=== PATIENT | female | born 1990 ===

== ENCOUNTER 2022-06-19 15:00 | Outpatient (RCR) | payer BC, SELFPAY | END 2022-07-25 14:28 | disposition home or self-care (01) | PROVIDERS: PCP Emergency Medicine; Visit Provider Emergency Medicine | DX: R42 Dizziness and giddiness (principal); Z51.89 Encounter for other specified aftercare | CPT/HCPCS: 97140; 97161 ==

== ENCOUNTER 2022-06-28 10:00 | Outpatient (CLI) | payer BC, SELFPAY ==
[2022-06-28 15:44] LABS: TSH With Reflex to FT4* 0.834 uIU/mL (0.270-4.200)
[2022-06-28 16:14] LABS: Vitamin B12* 419 pg/mL (243-894)
== END 2022-06-28 10:01 | disposition home or self-care (01) ==
PROVIDERS: PCP Emergency Medicine; Visit Provider Emergency Medicine
DX: R41.3 Other amnesia (principal)
CPT/HCPCS: 82607; 84443

== ENCOUNTER 2022-07-05 10:53 | Outpatient (CLI) | payer BC, SELFPAY ==
--- NOTE | 2022-07-05 10:15 | CRLHL7_ITS ---
For Patients: As a result of the Century Cures Act, medical imaging exams and procedure reports are released immediately into your electronic medical record. You may view this report before your referring provider. If you have questions, please contact your health care provider. INDICATION: Memory loss. TECHNIQUE: Multiplanar multisequence noncontrast MR images acquired through the brain. COMPARISON: None. FINDINGS: The ventricles and sulci are within normal limits for patient age. No mass effect or midline shift. No parenchymal signal abnormalities. No intracranial hemorrhage or pathologic extra-axial fluid collection. No diffusion restriction to suggest acute infarction. The major arterial flow voids of the skullbase are preserved. The globes are symmetric. Minimal paranasal sinus mucosal thickening. The mastoid air cells are clear. IMPRESSION: Unremarkable noncontrast MRI of the brain. Dictated by Humble Servin MD @ 07/05/2022 2:45:19 PM (Electronically Signed)
== END 2022-07-05 10:54 | disposition home or self-care (01) ==
LOC: MRI 10:54
PROVIDERS: PCP Emergency Medicine; Visit Provider Emergency Medicine
DX: R41.3 Other amnesia (principal)
CPT/HCPCS: 70551

== ENCOUNTER 2023-06-27 15:31 | Outpatient (CLI) | payer BC, SELFPAY ==
--- OUTSIDE RECORDS SUMMARY | 2023-06-27 15:39 | XMS_ITS | Encounter Summary ---
Author Name Unknown Organization [facility] Address [address] [place] [id number] Care Team Providers Care Dairy Associate Name Role Phone No Ref-Primary, Physician Primary Care Provider Encounter Details Date Type Department Care Team (Latest Contact Info) Description 01/10/2023 Travel Social History Tobacco Use Types Packs/Day Years Used Date Smoking Tobacco: Never Assessed Sex and Gender Information Value Date Recorded Sex Assigned at Not on file Gender Identity Not on file Sexual Orientation Not on file COVID-19 Exposure Response Date Recorded In the last 10 days, have yo u been in contact with someone who was confirmed or suspected to have Coronavirus/COVID-19? No / Unsure 01/10/2023 2:15 AM CDT documented as of this encounter Plan of Treatment Not on file documented as of this encounter Visit Diagnoses Not on filedocumented in this encounter Care Teams Dairy Associate Relationship Specialty Start Date End Date No Ref-Primary, Physician PCP - General 11/08/20 documented as of this encounter
--- OUTSIDE RECORDS SUMMARY | 2023-06-27 15:39 | XMS_ITS | Clinical Summary ---
Author Name Unknown Organization [facility] Address [address] [place] [id number] Care Team Providers Care Carpenters Name Role Phone No Ref-Primary, Physician Primary Care Provider Allergies Active Allergy Reactions Criticality Noted Date Comments Diphenhydramine 11/08/2020 [place] Extract 11/08/2020 Medications Medication Sig Dispensed Refills Start Date End Date Status divalproex sodium extended-release (DEPAKOTE ER) 500 MG 24 hr tablet Take 500 mg by mouth daily 0 Active dexmethylphenidate (FOCALIN XR) 15 MG 24 hr capsule Take 15 mg by mouth daily 0 Active QUEtiapine (SEROQUEL) 50 MG tablet Take 50 mg by mouth 2 times daily 0 Active lamoTRIgine (LAMICTAL) 200 MG tablet Take 200 mg by mouth daily 0 Active citalopram (CELEXA) 40 MG tablet Take 40 mg by mouth daily 0 Active Active Problems Problem Noted Date Diagnosed Date Episode of recurrent major d epressive disorder, unspecified depression episode severity (H24) 01/10/2023 Unspecified mood (affective) disorder (H24) 08/2022 Anxiety 01/10/2023 Attention-deficit hyperactivity disorder, unspec ified type 03/06/2010 Overview: IMO Update 03/20 Social History Tobacco Use Types Packs/Day Years Used Date Smoking Tobacco: Never Assessed Adolescent Education Answer Date Record ed Getting School Help Needed Not on file 03/25 Sex and Gender Information Value Date Recorded Sex Assigned at Not on file Gender Identity Not on file Sexual Orientation Not on file Last Filed Vital Signs Vital Sign Reading Time Taken Comments Blood Pressure 102/59 01/10/2023 3:50 AM CDT Pulse 81 01/10/2023 3:50 AM CDT Temperature 36.8 ??C (98.2 ??F) 01/10/2023 12:06 AM C DT Respiratory Rate 14 01/10/2023 3:50 AM CDT Oxygen Saturation 98% 01/10/2023 3:50 AM CDT Inhaled Oxygen Concentration - - Weight 75.9 kg (167 lb 5.3 oz) 06/11/2022 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 Height 152.4 cm (5') 06/11/2022 8:17 PM MACHINE DESIGNER Body Mass Index 32.68 06/11/2022 8:17 PM MACHINE DESIGNER Plan of Treatment Health Maintenance Due Date Last Done Comments ADVANCE CARE PLANNING 1990 ANNUAL REVIEW OF HM ORDERS 1990 DEPRESSION ACTION PLAN 1990 HEPATITIS B IMMUNIZATION (1 of 3 - 3-dose series) 1990 PHQ-9 1990 YEARLY PREVENTIVE VISIT 1990 HIV SCREENING 2005 HEPATITIS C SCREENING 2008 COVID-19 Vaccine ( season) 2023 10/19/2020, 09/28/2020 INFLUENZA VACCINE (#1) 2023 , 03/27/2019, 03/29/2011, Additional history exists PAP 05/19/2023 05/19/2020, 05/19/2020 DTAP/TDAP/TD IMMUNIZATION (2 - Td or Tdap) 02/26/2028 02/25/2018 HPV IMMUNIZATION Aged Out No longer e ligible based on patient's age to complete this topic IPV IMMUNIZATION Aged Out No longer e ligible based on patient's age to complete this topic MENINGITIS IMMUNIZATION Aged Out No l onger eligible based on patient's age to complete this topic Pneumococcal Vaccine: Pediatrics (0 to 5 Years) and At-Risk Patients (6 to 64 Years) Aged Out No longer eligible based on patient's age to complete this topic RSV MONOCLONAL ANTIBODY Aged Out No l onger eligible based on patient's age to complete this topic Care Teams Carpenters Relationship Specialty Start Date End Date No Ref-Primary, Physician PCP - General 11/08/20
--- OUTSIDE RECORDS SUMMARY | 2023-06-27 15:39 | XMS_ITS | Encounter Summary ---
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 Name Role Phone No Ref-Primary, Physician Primary Care Provider Reason for Visit * Reason Comments Suicidal Encounter Details Date Type Department Care Team (Late st Contact Info) Description 01/10/2023 12:06 AM CDT - 01/10/2023 4:09 AM CDT Emergency [facility] Emergency Dept [address] [place] [address] Osei Rose MD [facility] [address] [place] [address] Acute reaction to situational stress Discharge Disposition: Home or Self Care Social History Tobacco Use Types Packs/Day Years [...] AM CDT documented as of this encounter Last Filed Vital Signs Vital Sign Reading Time Taken Comments Blood Pressure 102/59 01/10/2023 3:50 AM CDT Pulse 81 01/10/2023 3:50 AM CDT Temperature 36.8 ??C (98.2 ??F) 01/10/2023 12:06 AM C DT Respiratory Rate 14 01/10/2023 3:50 AM CDT Oxygen Saturation 98% 01/10/2023 3:50 AM CDT Inhaled Oxygen Concentration - - Weight - - Height - - Body Mass Index - - documented in this encounter Discharge Instructions * Discharge Instructions* [facility] 01/10/2023 3:55 AM CDT Aftercare Plan If I am feeling unsafe or I am in a crisis, I will: Contact my established care providers Call the [place] Suicide Prevention Lifeline: 988 Go to the nearest emergency room Call 911 Warning signs that I or other people might notice when a crisis is developing for me: -Suicidal ideations, vague comments or threats to harm self -Engaging in self injurious behaviors of punching santana or hitting head -Crying and feeling overwhelmed -Irritability -Feeling overstimulated Things I am able to do on my own to cope or help me feel better: -Showering -cleaning house -playing with dogs -Putting on a dodd/hat Things that I am able to do with others to cope or help me better: -go for a drive -spend time with pets -spend time with family Things I can use or do for distraction: -I will attend scheduled appointments and psychiatric appointments and follow all recommendations -I will commit to 30 minutes of self care daily - this can be as simple as taking a shower, going for a walk, cooking a meal, reading, writing, watching something funny, cleaning your home, or evening looking up affirmations. -I will practice square breathing when I begin to feel anxious - in breath through the nose for thecount of 4 and the first line on the square. Out breath through the mouth for the count of 4 for the second line of the square. Repeat to complete the square. Repeat the square as many times as needed. - I will use distraction skills of: going for walks, watching TV, spending time outside, calling a friend or family member, creating a playlist, write a hand written letter to a loved one, or listening to a pod cast. -Download a meditation onofre and spend 15-20 minutes per day mediating/relaxing. Some apps to download include: Calm, Headspace and Insight Timer. All 3 of these apps have free version Grounding Techniques: ??Try to notice where you are, your surroundings including the people, the sounds like the TV or radio. ??Concentrate on your breathing. Take a deep cleansing breath from your diaphragm. Count the breaths as you exhale. Make sure you breath slowly. ??Hold something that you find comforting, for some it may be a stuffed animal or a blanket. Noticehow it feels in your hands. Is it hard or soft? ??During a non-crisis time make a list of positive affirmations. Print them out and keep them handyfor times of intense anxiety. At those times, read them aloud. Try the Reasult game: ??Name 5 things you can see in the room with you ??Name 4 things you can feel (???clothing on your back?? or ???fan on your skin?? ) ??Name 3 things you can hear right now (???people talking?? , ???birds?? or ???tv?? ) ??Name 2 things you can smell right now (or, 2 things you like the smell of) ??Name 1 good thing about yourself Create A Safe Place ??Image a safe place -- it can be a real or imaginary place: ??What do you see -- especially colors? ??What sounds do you hear? ??What sensations do you feel? ??What smells do you smell? ??What people or animals would you want in your safe place? ??Imagine a protective bubble, wall or boundary around your safe place. ??Imagine a door or gate with a guard at your safe place. ??Image a lock and hopson to your safe place and only you can unlock it. ??You can draw or make a collage that represents your safe place. ??Choose a souvenir of your safe place -- a color, an object, a song. ??Keep your image of your safe place so you can come back to it when you need to. Reduce Extreme Emotion QUICKLY: Changing Your Body Chemistry Change your body Temperature to change your autonomic nervous system ??Use Ice Water to calm yourself down FAST ??Splash ice water on your face, or hold an ice pack on your face Intensely exercise to calm down a body revved up by emotion ??Examples: running, walking fast, jumping, playing basketball, weight lifting, swimming, calisthenics, etc. ??Engage in exercises that DO NOT include violent behaviors. Exercises that utilize violent behaviors tend to function as ???behavioral rehearsal,?? and rather than calming the person down, may actually ???rev?? the person up more, increasing the likelihood of violence, and lessening the likelihood that they will ???burn off?? energy Progressively relax your muscles ??Starting with your hands, moving to your forearms, upper arms, shoulders, neck, forehead, eyes, cheeks and lips, tongue and teeth, chest, upper back, stomach, buttocks, thighs, calves, ankles, feet ??Tense (10 seconds, ?? of the way), then relax each muscle (all the way) ??Notice the tension ??Notice the difference when relaxed (by tensing first, and then relaxing, you are able to get a more thorough relaxation than by simply relaxing) Paced breathing to relax ??The standard technique is to begin with counting the number of steps one takes for a typical inhale, then counting the steps one takes for a typical exhale, and then lengthening the amount of stepsfor the exhalation by one or two steps. OR ??Repeat this pattern for 1-2 minutes ??Inhale for four (4) seconds ??Exhale for six (6) to eight (8) seconds ??Research demonstrated that one can change one's overall level of anxiety by doing this exercise for even a few minutes per day Practice Urge Surfing This is a mindfulness technique that can be used to help reduce impulsive behaviors. Take several big deep breaths and ride the wave before you act upon negative thoughts or strong reactions. 1. Identify the Physical Sensation in the Body. Stop for a few minutes and be mindful of your physical responses to your urge. You can close your eyes ... 2. Focus on the Sensations. 3. Notice Breathing. 4. Refocus on Your Body. 5 Stay Curious and Present. Sensations Squeeze a rubber ball very hard. Listen to very loud music. Hold ice in your hand or mouth. Pay with sensory items. Go out in the rain or snow. Take a hot or cold shower. Place an ice pack or a warm cloth on your forehead. Remember that you can use your 5 senses as helpful self-soothing techniques. DBT Skills: The ABC PLEASE skill is about taking good care of ourselves so that we can take care of others. Also, an important component of DBT is to reduce our vulnerability. When we take good care of ourselves, we are less likely to be vulnerable to disease and emotional crisis. ABC A- Accumulate positive emotions by doing things that are pleasant. B- Build mastery by doing things we enjoy. Whether it is reading, cooking, cleaning, fixing a car, working a cross word puzzle, or playing a musical instrument. Practice these things to contractor general building and in time we feel competent. C- [place] Ahead by rehearsing a plan ahead of time so that we can be prepared to cope skillfully. (Think of what makes situations difficult, and what helps in those situations) PLEASE Treat Physical Illness and take medications as prescribed. Balance eating in order to avoid mood swings. Avoid mood-Altering substances and have mood control. Maintain good sleep so you can enjoy your life. Get exercise to maintain high spirits. Changes I can make to support my mental health and wellness: -Come back to the Emergency Department with any new or worsening symptoms -Use community resources, including hotline numbers, [facility] crisis and support meetings -Maintain a daily schedule/routine -Practice deep breathing skills -Disclose my urges to people I trust, such as: Jannette, Psychiatrist, Friends, Spouse -Abstain from all mood altering chemicals not currently prescribed to me -Reduce caffeine intake (this can exacerbate anxiety and negatively impact sleep) -Take medications as prescribed. Remove access to large amounts medications, have a pill danielle forany prescribed medications.If appropriate, take medications with the help of loved ones to support daily compliance. -Talk with family/ loved ones about your prodromal symptoms -Reflect on symptoms before and after episodes with symptoms to gain insight into triggers and the need for additional care. -Safety plan in the home, increase observation and check in often with family. Keep door open and be open to touching base with family as often as possible. Consider 24/7 support over the next several days to ensure safety and support. -Remove any unsafe objects in the home like firearms or sharp objects. Discuss with family on goingremoval as needed to ensure safety. -Follow up with out-patient recommended levels of care that were discussed today -Remember, start where you are, use what you have and do what you can in regard to coping skills and services. People in my life that I can ask for help: -Jannette -Psychiatrist -Mother -Brother -Friends Your county has a mental health crisis team you can call 31/12: [facility] Crisis [phone] Other things that are important when I'm in crisis: [place] crisis line @ CRISIS (658026) or by texting ???[place]?? to 269995. Crisis Intervention: 801.624.6198 or 665-485-4425 (TTY: 882.759.1710). Call anytime for help. National Grandy on Mental Illness (www.[place].cassandra.org): 954.189.2070 or 889-406-5594. [place] Crisis Hotline; 633 Additional resources and information: -Please consider individual therapy -Please look into obtaining a case aide -Please attend scheduled evaluation on February 03 -Please follow up with psychiatrist as soon as possible [facility] SCHEDULING: Today you were seen by a licensed mental health professional through [facility] ([facility]) for a crisis assessment in the Emergency Department at [facility]. It is recommended that you follow up with your estabished providers (psychiatrist, mental health therapist, and/or primary care doctor - as relevant) as soon as possible. Coordinators from [facility] will be calling you in the next 24-48 hours to ensure that you have the resources you need. You can also contact [facility] coordinators directly at [phone]. You have been scheduled the following appointments: Date: , 01/17/2023 Time: 10:00 am - 11:00 am Provider: Vimal [facility] Location: [facility], [address] [place] [address] [place] [address] Type: Day Treatment *Please call to confirm appointment time/ date and location* [facility] maintains an extensive network of licensed behavioral health providers to connect patients withthe services they need. We do not charge providers a fee to participate in our referral network. [place] patients with providers based on a patient???s specific needs, insurance coverage, and location. Our first effort will be to refer you to a provider within your care system, and will utilize pro viders outside your care system as needed. Mental Health Out-Patient Clinics/Services Near You: [facility] [phone] *Offers Individual Therapy, Medication Management, In-Home Therapy and Mental Health Case Workers; Can self refer online or by phone. [facility] *Offers Individual Therapy, Chemical Dependency Evaluations, Group Services, Psychological Testing,In-Home Therapy, Nutrition Counseling, Mother-Baby Programming, Medication Management and Mental Health Case Workers; Can self refer online or by phone. [facility] [phone] *Offers medication management, therapy, DBT Group, In-Home and geriatric care . Can self refer online or by phone. [facility] [phone] *Offers Individual Therapy, Group Services, Psychological Testing, In-Home Therapy, Medication Management, and Intensive Treatment in Foster Care (ITFC) Services; Can self refer online or by phone. You can also go to Serviceful and utilize the filters for insurance, location, gender preference and preferred specialities to read and find providers near you. [facility] Resource (Information pulled from [facility] Website) Call the Crisis Response Unit at 410-213-2005. The Crisis Response Unit is available to all people in the community. Phones are answered by caringstaff who know a lot about mental health, housing, shelters, food, employment and transportation. The Crisis Response Unit is considered a voluntary service. This means you choose if you want help from us. The Crisis Response Unit can also help with things like: Mental health crisis assessments Access to urgent psychiatry and therapy Family education and support Crisis phone support Referrals to community resources Crisis Stabilization Services Crisis Stabilization Services is a short-term service for people who need extra help getting through the difficult time after a crisis. Crisis Stabilization Services is a voluntary service. Call the Crisis Response Unit for more information. Non-urgent business hours Call Adult Services Intake at [phone] from 8 a.m-4 p.m. Walk in hours: 8 a.m.-4 p.m. Crisis Residences in [place] [facility], [facility] [place], [facility], [facility], Judy Desai, [facility], Crisis Residences in [facility] in [facility], [place], [place], [facility], Information/Referral Process: Crisis residences are self-referred programs (meaning you can call them on your own and request to go there). The program integrates mental health, medical, and substance use care in a residential, 24-hour, supervised setting for up to 10 days. Individuals can leave as they please. These services help individuals who are experiencing a mental health crisis or emergency. Crisis Lines Crisis Text Line Text 437617 You will be connected with a trained live crisis counselor to provide support. Por espanol, texto AYLEEN a 487063 o texto a 442-AYUDAME en WhatsApp The [employer] Project (LGBTQ Youth Crisis Line) text START to 746-983 Community Resources Fast Tracker Linking people to mental health and substance use disorder resources fasttrackPressgramn.org [place] Mental [facility] Warm Line Peer to peer support Saturday thru Saturday, 12 pm to 10 pm 902.312.2352 or Text Support to [address] National Grandy on Mental Illness (CASSANDRA) 608.943.9964 or 1.888.CASSANDRA.HELPS Mental Health Apps My3 https://my3app.org/ VirtualHopeBox https://Code71.org/apps/rgyfkca-aqrx-syo/ Additional Information Today you were seen by a licensed mental health professional through Triage and Transition services, [facility]) for a crisis assessment in the Emergency Department at [facility]. It is recommended that you follow up with your established providers (psychiatrist, mental health therapist, and/or primary care doctor - as relevant) as soon as possible. Coordinators from [facility] will be calling you in the next 24-48 hours to ensure that you have the resources you need. You can also contact [facility] coordinators directly at [phone]. You may have been scheduled for or offered an appointment with a mental health provider. [facility] maintains an extensive network of licensed [facility] health providers to connect patients with the services they need. We do not charge providers a fee to participate in our referral network. We match patients with providers based on a patient's specific needs, insurance coverage, and location. Our first effort will be to refer you to a provider within your care system, and will utilize providers outside your care system as needed. * Attachments The following attachments cannot be sent through Care Everywhere. * Suicidal Thoughts (French) * Depression: Self Care (French) * Mood Disorders: General Info (French) documented in this encounter Medications at Time of Discharge Medication Sig Dispensed Refills Start Date End Date citalopram (CELEXA) 40 MG tablet Take 40 mg by mouth daily 0 dexmethylphenidate (FOCALIN XR) 15 MG 24 hr capsule Take 15 mg by mouth daily 0 divalproex sodium extended-release (DEPAKOTE ER) 500 MG 24 hr tablet Take 500 mg by mouth daily 0 lamoTRIgine (LAMICTAL) 200 MG tablet Take 200 mg by mouth daily 0 QUEtiapine (SEROQUEL) 50 MG tablet Take 50 mg by mouth 2 times daily 0 documented as of this encounter Consult Notes * Mara Tobin LPCC - 01/10/2023 2:30 AM CDTAssociated Order(s): DIAGNOSTIC EVALUATION CENTER (DEC) ASSESSMENT ORDER Diagnostic Evaluation Consultation Crisis Assessment Patient Name: Carla Bullock Age: [age] year old Legal Sex: female Gender Identity: female Pronouns: Race: White Ethnicity: Not or Language: French Patient was assessed: Virtual: Knowmia Telemedicine Start Time: 229 Telemedicine Stop Time: 328 Patient location: [facility] EMERGENCY DEPT Referral Data and Chief Complaint Carla Bullock presents to the ED via EMS (Pt reports police called EMS and pt was brought in for this reason, though shares she is unsure who called 911.). Patient is presenting to the ED for the following concerns: Verbal agitation, Anxiety, Depression, Suicidal ideation, Worsening psychosocial stress. Factors that make the mental health crisis life threatening or complex are: Pt noted she is in the hospital today after having a conflict with her family, specifically her spouse about money. Pt expressed she is unsure how 911 came into play, though believes a family member likely called after she became increasingly dysregulated and upset. Pt shared when she is dysregulated she can be verbally abrasive, uncooperative, crying, anxious and make ideation comments.. Informed Consent and Assessment Methods Explained the crisis assessment process, including applicable information disclosures and limits toconfidentiality, assessed understanding of the process, and obtained consent to proceed with the assessment. Assessment methods included conducting a formal interview with patient, review of medical records, collaboration with medical staff, and obtaining relevant collateral information from familyand community providers when available. : done (Pt denied wanting to sign MICHELE's for established providers. MICHELE sent to ED for referral placed, ED to fax back if signed.) Patient response to interventions: acceptance expressed, verbalizes understanding Coping skills were attempted to reduce the crisis: Pt reported coping skills of showering, driving around town and speaking with friends and family. Pt expressed she attempted to use such skills today. Pt showed many benefits of verbal processing, given time to express frustrations, provided validation and reassurance with positive impact. History of the Crisis Pt reported before this recent visit to the ED, her mental health concerns have been present for several years, though more impactful in the past week, attributing this to not having her anti-depressant medication for a week and having increased conflict in the home with spouse, work stressors and financial debt. Pt noted ???my brain can not handle it?? with the increased stressors and thus ???Iwas having a melt down?? today. Pt expressed she had conflict with her spouse about money this past night and discussion of separation was noted. Pt noted she then left the home to ???cool off?? and drive around town, when she returned, one of her spouses adult daughters was in the home and told pt to ???get your shit and leave?? , relaying ???so that pissed me off?? . Pt was unable to regulateemotions after this, felt unsupported and overwhelmed and made an ideation comment such as ???I just want to , I don???t care or whatever?? . Though pt shared she said this out of frustration stating ???doesn???t everyone feel that way sometimes??? . Pt then noted she locked herself in the bathroom in attempt to take a shower and regulate herself, and her other spouse's daughter came in to speak with her. Pt shared that when they came out of the bathroom, nursing agency manager were present and pt recommendedpt be seen in ED. Pt expresses this ???really fucking pissed me off?? as she was upset and overwhelmed and did not believe It was necessary to be evaluated in the ED. Pt often expressed that the police report had misinformation provided by the spouse and oldest daughter, noting that pt and youngest daughter precieved the situation differently, which worsened her frustrations. Pt did express that historically she can become dsyregulated to the point of ideation comments and SIB of hitting head,expressing she has difficult engaging in coping skills when feeling overwhelmed and believes this is related to an Autism Diagnosis (not confirmed). [facility] was able to speak with patients step-daughterJannette at [phone] who confirmed pt's story. Collateral noted pt was able to return to her home with increased support and safety measures in place. 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 otherwise it is too much for me.) Source of Income: salary/wages Financial Environmental Concerns: other (see comments) (reports on going Debts which pt is unable to address due to limited work ability.) Current Hobbies: interaction with pets, television/movies/videos, other (see comments) (warm showers) Barriers in Personal Life: mental health concerns, emotional concerns, behavioral concerns Significant Clinical History Current Anxiety Symptoms: obsessions/compulsions, racing thoughts, shortness of breath or racing heart, excessive worry, anxious Current Depression/Trauma: difficulty concentrating, withdrawl/isolation, crying or feels like crying, low self esteem, irritable, helplessness, hoplessness, sadness, thoughts of /suicide Current Somatic Symptoms: racing thoughts, excessive worry, shortness of breath or racing heart, anxious Current Psychosis/Thought Disturbance: impulsive, hostile/aggressive, agitation (At first, pt was highly agitated, verbally abrasive with LMHP and appeared impulsive, after rapport was gained with pt, pt showed large ability to regulate emotions,showed ability to stay calm and cooperative.) Current Eating Symptoms: (denied) Chemical Use History: Alcohol: None Last Use:: (denied) Benzodiazepines: None Last Use:: (denied) Opiates: None Last Use:: (denied) Cocaine: None Last Use:: (denied) Marijuana: Daily Last Use:: 01/10/23 (smoke everyday stating keeps me calm) Other Use: (Denied) Withdrawal Symptoms: (denied) Addictions: (denied) Past diagnosis: ADHD, Anxiety Disorder, Depression, Bipolar Disorder, Other (Pt stated the bi-polar disorder is bullshit. Pt shared historical diagnosis of RAD and OCD as well) Family history: No known history of mental health or chemical health concerns (Unknown. Pt noted she does not have contact with [employer] and is unaware of biological parent history.) Past treatment: Individual therapy, Inpatient Hospitalization, Residential Treatment Details of most recent treatment: Pt expressed she has medications which she takes daily, Pt noted she last saw the provider on the 08 of January. Pt expressed she sees the providers once a month jasmeet hour long session and reports this provider is helpful and supportive. Pt denied wanting to provide details of the provider stating ???that is my business?? . Pt denied any other MH services at this time outside of an upcoming Neuropsychological Evaluation on February 03 to gain insight to symptoms/ concerns for Autism. Other relevant history: Pt shared history of therapy, pt noted 5 episodes in the past though the providers often left or moved and thus she has no intent to start therapy again. Pt expressed prior admission for MH, last time occurred in college and has had a total of 3-4 admissions in lifetime. Pt shares the history of residential services in high school. Pt denies history of drug or alcohol treatment. Collateral Information Is there collateral information: Yes Collateral information name, relationship, phone number: Financial Services Agent obtained collateral information from Donna medeiros (Spouse)- [phone]. What happened today: she has been diagnosed with Bipolar and borderline personality disorder, anxiety and is waiting for ASD assessment. she has been having trouble with work. She has been feeling sad and mad. We realized that she has been out of her anti depressant for a week. What is different about patient's functioning: She has been getting mad, angry, throwing stuff. She has been having unstable to mood for 2 years. She states she kicked her out of the house today. She has not been able to perfom her work duties properly. She got fired from multiple jobs. Concern about alcohol/drug use: no Has patient made comments about wanting to kill themselves/others: yes If d/c is recommended, can they take part in safety/aftercare planning: yes Additional collateral information: Reports she does not want to be in a relationship with her anymore. She states patient's unstable mood and mental health has been extremely stressful. She reportsshe has been trying to help her and support her for the last 2 years but she is tired and believes Carla needs more help. Risk Assessment [place] Suicide Severity Rating Scale Full Clinical Version: 8.3.23 Suicidal Ideation Q1 Wish to be (Lifetime): Yes (hasnt everyone?) Q2 Non-Specific Active Suicidal Thoughts (Lifetime): Yes 3. Active Suicidal Ideation with any Methods (Not Plan) Without Intent to Act (Lifetime): Yes (yeswhen I get so pissed off) Q4 Active Suicidal Ideation with Some Intent to Act, Without Specific Plan (Lifetime): No Q5 Active Suicidal Ideation with Specific Plan and Intent (Lifetime): No Q6 Suicide Behavior (Lifetime): no (No, My God) Suicidal Behavior (Lifetime) Actual Attempt (Lifetime): No Has subject engaged in non-suicidal self-injurious behavior? (Lifetime): Yes (history of sib of hitting head hell ya I get frustrated and hit things) Interrupted Attempts (Lifetime): No Aborted or Self-Interrupted Attempt (Lifetime): No Preparatory Acts or Behavior (Lifetime): No [place] Suicide Severity Rating Scale Recent: 8.3.23 Suicidal Ideation (Recent) Q1 Wished to be (Past Month): yes Q2 Suicidal Thoughts (Past Month): yes Q3 Suicidal Thought Method: yes (jumping in front of traffic or something, I dont know, wow) Q4 Suicidal Intent without Specific Plan: no (???I want to live and survive?? ) Q5 Suicide Intent with Specific Plan: no (???I am a talker but I can???t do it?? ) Within the Past 3 Months?: no Level of Risk per Screen: moderate risk Intensity of Ideation (Recent) Most Severe Ideation Rating (Past 1 Month): 2 (worst one was in high school; I like the number two, we will go with 2) Description of Most Severe Ideation (Past 1 Month): (Pt shares just this past night, when fighting with spouse and family) Frequency (Past 1 Month): Less than once a week Duration (Past 1 Month): Less than 1 hour/some of the time (I am not thinking about this shit whenI think like that, pt shared maybe an hour) Controllability (Past 1 Month): Can control thoughts with a lot of difficulty (Pt expressed, when upset and pissed off it can be hard to regulate emotions) Deterrents (Past 1 Month): Deterrents definitely stopped you from attempting suicide (???I am a fighter, I am not a give up type of person, love my family, dogs and myself?? ) Reasons for Ideation (Past 1 Month): Equally to get attention, revenge, or a reaction from others and to end/stop the pain Suicidal Behavior (Recent) Actual Attempt (Past 3 Months): No Total Number of Actual Attempts (Past 3 Months): 0 Has subject engaged in non-suicidal self-injurious behavior? (Past 3 Months): Yes (Pt shares history of hitting head or punching santana when upset, pt shared this last occured two months ago) Interrupted Attempts (Past 3 Months): No Total Number of Interrupted Attempts (Past 3 Months): 0 Aborted or Self-Interrupted Attempt (Past 3 Months): No Total Number of Aborted or Self-Interrupted Attempts (Past 3 Months): 0 (couple of months ago) Preparatory Acts or Behavior (Past 3 Months): No Total Number of Preparatory Acts (Past 3 Months): 0 Preparatory Acts or Behavior Description (Past 3 Months): (no) Environmental or Psychosocial Events: challenging interpersonal relationships, helplessness/hopelessness, impulsivity/recklessness, excessive debt, poor finances, ongoing abuse of substances, social isolation Protective Factors: Protective Factors: strong anderson to family unit, community support, or employment, responsibilities and duties to others, including pets and children, supportive ongoing medical and mental health care relationships, sense of belonging, optimistic outlook - identification of future goals, reality testing ability Does the patient have thoughts of harming others? Feels Like Hurting Others: no Previous Attempt to Hurt Others: no Current presentation: Irritable Violence Threats in Past 6 Months: Denied: Pt denied when agitated and when regulated. Current Violence Plan or Thoughts: Denied: Pt denied when agitated and when regulated. Is the patient engaging in sexually inappropriate behavior?: no Duty to warn initiated: no Is the patient engaging in sexually inappropriate behavior? no Mental Status Exam Affect: Dramatic, Appropriate (Pt appeared Dramatic at initial contact though became appropriate after rapport was gained) Appearance: Appropriate Attention Span/Concentration: Attentive Eye Contact: Engaged Fund of Knowledge: Appropriate Language /Speech Content: Fluent, Expressive Speech Language /Speech Volume: Normal Language /Speech Rate/Productions: Normal, Hyperverbal (Hyperveral when agitated, though regulated to normal rate when calm and cooperative) Recent Memory: Intact Remote Memory: Intact Mood: Sad, Depressed, Anxious, Angry Orientation to Person: Yes Orientation to Place: Yes Orientation to Time of Day: Yes Orientation to Date: Yes Situation (Do they understand why they are here?): Yes Psychomotor Behavior: Agitated, Normal (Showed large amount of agitation at initial encounter, though after time with [facility] expressing self, appeared to regulate with verbal process and showed appropriate behavior.) Thought Content: Clear Thought Form: Goal Directed Medication No current facility-administered medications for this encounter. Current Outpatient Medications Medication citalopram (CELEXA) 40 MG tablet dexmethylphenidate (FOCALIN XR) 15 MG 24 hr capsule divalproex sodium extended-release (DEPAKOTE ER) 500 MG 24 hr tablet lamoTRIgine (LAMICTAL) 200 MG tablet QUEtiapine (SEROQUEL) 50 MG tablet Current Care Team Patient Care Team: No Ref-Primary, Physician as PCP - General Diagnosis Patient Active Problem List Diagnosis Code Attention-deficit hyperactivity disorder, unspecified type F90.9 Episode of recurrent major depressive disorder, unspecified depression episode severity (H) F33.9 Unspecified mood (affective) disorder (H) F39 Anxiety F41.9 Primary Problem This Admission Active Hospital Problems Unspecified mood (affective) disorder (H) Episode of recurrent major depressive disorder, unspecified depression episode severity (H) *Anxiety Attention-deficit hyperactivity disorder, unspecified type Clinical Summary and Substantiation of Recommendations Pt is a 32-year-old female who is being seen on this date in the ED due to mood dysregulation and threats of suicide. Pt appears to have diagnosis of mood dysregulation, depression, anxiety and ADHD and appears to have a history of such diagnosis. Pt is showing current symptoms of: worsening depression and anxiety due to biopsychosocial stressors in addition to ongoing mood changes. Pt reports history of ideation comments when dysregulated and shares on-going long- term history of mood dysregulation with being verbally and physically abrasive. Pt has insight that her on going mood is impactingher life and needs to be address. Pt often expresses she has a strong belief she has Autism and relays attending evaluation and gaining insight into this will likely provide insight and relief for her. Pt was a first very dysregulated with initial [facility] contact, though after explaining DEC process, gaining rapport and providing numerous validations and reassurance, pt showed strong ability to participate and showed significant benefit with verbal processing. [facility] was able to speak with pt???s step-daughter, who noted ability to safety plan with pt and have pt return home with her for the next few days with increased support. 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 The patient's circumstances and mental state were appropriate for outpatient management. It is the recommendation of this clinician that pt discharge with OP MH support. Pt is likely at a elevated risk due to history of SI threats when upset and history of SIB. However pt is denying any active urges to harm self or others. To mitigate risk pt will be discharging with scheduled services and a safety plan into care of step- daughter. Recommendation for pt to begin OP and has been noted and scheduled. Patient coping skills attempted to reduce the crisis: Pt reported coping skills of showering, driving around town and speaking with friends and family. Pt expressed she attempted to use such skills today. Pt showed many benefits of verbal processing, given time to express frustrations, provided validation and reassurance with positive impact. Disposition Recommended disposition: Individual Therapy, Medication Management, Programmatic Care, Psychological Testing, Other. please comment (Case Management) Reviewed case and recommendations with attending provider. Attending Name: Dr. Rose Attending concurs with disposition: yes Patient and/or validated legal guardian concurs with disposition: no (Pt denies wanting individual therapy. However pt is open to programmatic care evaluation which was scheduled for January 17, to look into Case Managment resources provided and attend scheduled medication appointment and neuropsych evaluation.) Final disposition: discharge Legal status on admission: Voluntary/Patient has signed consent for treatment Assessment Details Total duration spent on the patient case in minutes: 59 min CPT code(s) utilized: 45824 - Psychotherapy for Crisis - 60 (30-74*) min Mara Tobin [facility], Psychotherapist [facility] - Triage & Transition Services Callback: [phone] Aftercare Plan If I am feeling unsafe or I am in a crisis, I will: Contact my established care providers Call the National Suicide Prevention Lifeline: 984 Go to the nearest emergency room Call 911 Warning signs that I or other people might notice when a crisis is developing for me: -Suicidal ideations, vague comments or threats to harm self -Engaging in self injurious behaviors of punching santana or hitting head -Crying and feeling overwhelmed -Irritability -Feeling overstimulated Things I am able to do on my own to cope or help me feel better: -Showering -cleaning house -playing with dogs -Putting on a dodd/hat Things that I am able to do with others to cope or help me better: -go for a drive -spend time with pets -spend time with family Things I can use or do for distraction: -I will attend scheduled appointments and psychiatric appointments and follow all recommendations -I will commit to 30 minutes of self care daily - this can be as simple as taking a shower, going for a walk, cooking a meal, reading, writing, watching something funny, cleaning your home, or evening looking up affirmations. -I will practice square breathing when I begin to feel anxious - in breath through the nose for thecount of 4 and the first line on the square. Out breath through the mouth for the count of 4 for the second line of the square. Repeat to complete the square. Repeat the square as many times as needed. - I will use distraction skills of: going for walks, watching TV, spending time outside, calling a friend or family member, creating a playlist, write a hand written letter to a loved one, or listening to a pod cast. -Download a meditation onofre and spend 15-20 minutes per day mediating/relaxing. Some apps to download include: Calm, Headspace and Insight Timer. All 3 of these apps have free version Grounding Techniques: ??Try to notice where you are, your surroundings including the people, the sounds like the TV or radio. ??Concentrate on your breathing. Take a deep cleansing breath from your diaphragm. Count the breaths as you exhale. Make sure you breath slowly. ??Hold something that you find comforting, for some it may be a stuffed animal or a blanket. Noticehow it feels in your hands. Is it hard or soft? ??During a non-crisis time make a list of positive affirmations. Print them out and keep them handyfor times of intense anxiety. At those times, read them aloud. Try the Reasult game: ??Name 5 things you can see in the room with you ??Name 4 things you can feel (???clothing on your back?? or ???fan on your skin?? ) ??Name 3 things you can hear right now (???people talking?? , ???birds?? or ???tv?? ) ??Name 2 things you can smell right now (or, 2 things you like the smell of) ??Name 1 good thing about yourself Create A Safe Place ??Image a safe place -- it can be a real or imaginary place: ??What do you see -- especially colors? ??What sounds do you hear? ??What sensations do you feel? ??What smells do you smell? ??What people or animals would you want in your safe place? ??Imagine a protective bubble, wall or boundary around your safe place. ??Imagine a door or gate with a guard at your safe place. ??Image a lock and hopson to your safe place and only you can unlock it. ??You can draw or make a collage that represents your safe place. ??Choose a souvenir of your safe place -- a color, an object, a song. ??Keep your image of your safe place so you can come back to it when you need to. Reduce Extreme Emotion QUICKLY: Changing Your Body Chemistry Change your body Temperature to change your autonomic nervous system ??Use Ice Water to calm yourself down FAST ??Splash ice water on your face, or hold an ice pack on your face Intensely exercise to calm down a body revved up by emotion ??Examples: running, walking fast, jumping, playing basketball, weight lifting, swimming, calisthenics, etc. ??Engage in exercises that DO NOT include violent behaviors. Exercises that utilize violent behaviors tend to function as ???behavioral rehearsal,?? and rather than calming the person down, may actually ???rev?? the person up more, increasing the likelihood of violence, and lessening the likelihood that they will ???burn off?? energy Progressively relax your muscles ??Starting with your hands, moving to your forearms, upper arms, shoulders, neck, forehead, eyes, cheeks and lips, tongue and teeth, chest, upper back, stomach, buttocks, thighs, calves, ankles, feet ??Tense (10 seconds, ?? of the way), then relax each muscle (all the way) ??Notice the tension ??Notice the difference when relaxed (by tensing first, and then relaxing, you are able to get a more thorough relaxation than by simply relaxing) Paced breathing to relax ??The standard technique is to begin with counting the number of steps one takes for a typical inhale, then counting the steps one takes for a typical exhale, and then lengthening the amount of stepsfor the exhalation by one or two steps. OR ??Repeat this pattern for 1-2 minutes ??Inhale for four (4) seconds ??Exhale for six (6) to eight (8) seconds ??Research demonstrated that one can change one's overall level of anxiety by doing this exercise for even a few minutes per day Practice Urge Surfing This is a mindfulness technique that can be used to help reduce impulsive behaviors. Take several big deep breaths and ride the wave before you act upon negative thoughts or strong reactions. 1. Identify the Physical Sensation in the Body. Stop for a few minutes and be mindful of your physical responses to your urge. You can close your eyes ... 2. Focus on the Sensations. 3. Notice Breathing. 4. Refocus on Your Body. 5 Stay Curious and Present. Sensations Squeeze a rubber ball very hard. Listen to very loud music. Hold ice in your hand or mouth. Pay with sensory items. Go out in the rain or snow. Take a hot or cold shower. Place an ice pack or a warm cloth on your forehead. Remember that you can use your 5 senses as helpful self-soothing techniques. DBT Skills: The ABC PLEASE skill is about taking good care of ourselves so that we can take care of others. Also, an important component of DBT is to reduce our vulnerability. When we take good care of ourselves, we are less likely to be vulnerable to disease and emotional crisis. ABC A- Accumulate positive emotions by doing things that are pleasant. B- Build mastery by doing things we enjoy. Whether it is reading, cooking, cleaning, fixing a car, working a cross word puzzle, or playing a musical instrument. Practice these things to contractor general building and in time we feel competent. C- [place] Ahead by rehearsing a plan ahead of time so that we can be prepared to cope skillfully. (Think of what makes situations difficult, and what helps in those situations) PLEASE Treat Physical Illness and take medications as prescribed. Balance eating in order to avoid mood swings. Avoid mood-Altering substances and have mood control. Maintain good sleep so you can enjoy your life. Get exercise to maintain high spirits. Changes I can make to support my mental health and wellness: -Come back to the Emergency Department with any new or worsening symptoms -Use community resources, including hotline numbers, [facility] crisis and support meetings -Maintain a daily schedule/routine -Practice deep breathing skills -Disclose my urges to people I trust, such as: Jannette, Psychiatrist, Friends, Spouse -Abstain from all mood altering chemicals not currently prescribed to me -Reduce caffeine intake (this can exacerbate anxiety and negatively impact sleep) -Take medications as prescribed. Remove access to large amounts medications, have a pill danielle forany prescribed medications.If appropriate, take medications with the help of loved ones to support daily compliance. -Talk with family/ loved ones about your prodromal symptoms -Reflect on symptoms before and after episodes with symptoms to gain insight into triggers and the need for additional care. -Safety plan in the home, increase observation and check in often with family. Keep door open and be open to touching base with family as often as possible. Consider 24 support over the next several days to ensure safety and support. -Remove any unsafe objects in the home like firearms or sharp objects. Discuss with family on goingremoval as needed to ensure safety. -Follow up with out-patient recommended levels of care that were discussed today -Remember, start where you are, use what you have and do what you can in regard to coping skills and services. People in my life that I can ask for help: -Jannette -Psychiatrist -Mother -Brother -Friends Your [facility] has a mental health crisis team you can call 31/12: [facility] Crisis [phone] Other things that are important when I'm in crisis: [place] crisis line @ CRISIS (248735) or by texting ???[place]?? to 606064. Crisis Intervention: 424.259.3731 or 755-652-9448 (TTY: 587.616.1417). Call anytime for help. National [place] on Mental Illness (www.[place].cassandra.org): 364.384.5810 or 671-402-0675. National Crisis Hotline; 011 Additional resources and information: -Please consider individual therapy -Please look into obtaining a case aide -Please attend scheduled evaluation on February 03 -Please follow up with psychiatrist as soon as possible [facility] SCHEDULING: Today you were seen by a licensed mental health professional through [facility] ([facility]) for a crisis assessment in the Emergency Department at [facility]. It is recommended that you follow up with your estabished providers (psychiatrist, mental health therapist, and/or primary care doctor - as relevant) as soon as possible. Coordinators from [facility] will be calling you in the next 24-48 hours to ensure that you have the resources you need. You can also contact [facility] coordinators directly at [phone]. You have been scheduled the following appointments: Date: , 01/17/2023 Time: 10:00 am - 11:00 am Provider: Vimal [facility] Location: [facility], [address] [place] [address] Type: Day Treatment *Please call to confirm appointment time/ date and location* [facility] maintains an extensive network of licensed behavioral health providers to connect patients withthe services they need. We do not charge providers a fee to participate in our referral network. [place] patients with providers based on a patient???s specific needs, insurance coverage, and location. Our first effort will be to refer you to a provider within your care system, and will utilize pro viders outside your care system as needed. Mental Health Out-Patient Clinics/Services Near You: [facility] [phone] *Offers Individual Therapy, Medication Management, In-Home Therapy and Mental Health Case Workers; Can self refer online or by phone. [facility] *Offers Individual Therapy, Chemical Dependency Evaluations, Group Services, Psychological Testing,In-Home Therapy, Nutrition Counseling, Mother-Baby Programming, Medication Management and Mental Health Case Workers; Can self refer online or by phone. [facility] [phone] *Offers medication management, therapy, DBT Group, In-Home and geriatric care . Can self refer online or by phone. [facility] [phone] *Offers Individual Therapy, Group Services, Psychological Testing, In-Home Therapy, Medication Management, and Intensive Treatment in Foster Care (ITFC) Services; Can self refer online or by phone. You can also go to Serviceful and utilize the filters for insurance, location, gender preference and preferred specialities to read and find providers near you. [facility] Resource (Information pulled from [facility] Website) Call the Crisis Response Unit at [phone]. The Crisis Response Unit is available to all people in the community. Phones are answered by caringstaff who know a lot about mental health, housing, shelters, food, employment and transportation. The Crisis Response Unit is considered a voluntary service. This means you choose if you want help from us. The Crisis Response Unit can also help with things like: Mental health crisis assessments Access to urgent psychiatry and therapy Family education and support Crisis phone support Referrals to community resources Crisis Stabilization Services Crisis Stabilization Services is a short-term service for people who need extra help getting through the difficult time after a crisis. Crisis Stabilization Services is a voluntary service. Call the Crisis Response Unit for more information. Non-urgent business hours Call Adult Services Intake at [phone] from 8 a.m-4 p.m. Walk in hours: 8 a.m.-4 p.m. Crisis Residences in [facility], [facility], [facility], [facility], [facility], [facility], Crisis Residences in [facility] in [facility], [place], [place], [facility], Information/Referral Process: Crisis residences are self-referred programs (meaning you can call them on your own and request to go there). The program integrates mental health, medical, and substance use care in a residential, 24-hour, supervised setting for up to 10 days. Individuals can leave as they please. These services help individuals who are experiencing a mental health crisis or emergency. Crisis Lines Crisis Text Line Text 899819 You will be connected with a trained live crisis counselor to provide support. Por milka, lizbetho AYLEEN a 728234 o texto a 442-AYUDAME en WhatsApp [facility] [employer] (LGBTQ Youth Crisis Line) text START to 231-897 Community Resources Fast Tracker Linking people to mental health and substance use disorder resources fasttrackermn.[place] [facility] Warm Line Peer to peer support Saturday thru Saturday, 12 pm to 10 pm 072.239.1475 [place] [address] [employer] [place] [employer] Mental Illness (CASSANDRA) 619.532.8084 or 1.888.CASSANDRA.HELPS Mental Health Apps My3 https://docplanner.org/ VirtualHopeBox https://Rentlord/apps/vrhmjfm-lzud-lnz/ Additional Information Today you were seen by a licensed mental health professional through Triage and Transition services, [facility] ([facility]) for a crisis assessment in the Emergency Department at [facility]. It is recommended that you follow up with your established providers (psychiatrist, mental health therapist, and/or primary care doctor - as relevant) as soon as possible. Coordinators from [facility] will be calling you in the next 24-48 hours to ensure that you have the resources you need. You can also contact [facility] coordinators directly at [phone]. You may have been scheduled for or offered an appointment with a mental health provider. [facility] maintains an extensive network of licensed [facility] health providers to connect patients with the services they need. We do not charge providers a fee to participate in our referral network. We match patients with providers based on a patient's specific needs, insurance coverage, and location. Our first effort will be to refer you to a provider within your care system, and will utilize providers outside your care system as needed. documented in this encounter ED Notes * Paulina Marie RN - 01/10/2023 3:35 AM CDT DEC assessment complete. Patient up to restroom and smiling. * Paulina Marie RN - 01/10/2023 1:20 AM CDT SO and other visitor in room. Patient on 1:1 observation for safety * Paulina Marie RN - 01/10/2023 12:14 AM CDT Per EMS. Patient and discussing possible divorce. She was very upset and making statements regarding running into traffic to harm herself. Triage Assessment Row Name 01/10/23 0007 Triage Assessment (Adult) Airway WDL WDL Respiratory WDL Respiratory WDL WDL Skin Circulation/Temperature WDL Skin Circulation/Temperature WDL WDL Cardiac WDL Cardiac WDL WDL Peripheral/Neurovascular WDL Peripheral Neurovascular WDL WDL * Brooke Jesus RN - 01/10/2023 12:06 AM CDT Bed: ED05 Expected date: Expected time: Means of arrival: Comments: A596 32y F * Osei Rose MD - 01/10/2023 12:06 AM CDT History Chief Complaint: Suicidal (/) HPI Carla Bullock is a 32 year old female with a history of bipolar disorder and depressive disorder presenting with suicidal ideation. Patient states that she got into an argument with her and her asked for a divorce which prompted her to become irritated and yelled. Patient states that shewent outside to cool off and then the nursing agency manager were called on her. Patient made comments about wanting to jump in front of a car to end her life prompting her to be brought to the hospital. Patient has aprior suicide attempt in her record but denies any suicide attempts. Patient does not want to be inthe hospital and states she will say anything in order to get out of the hospital. Independent Historian: None - Patient Only Review of External Notes: Reviewed June 2022 note regarding vertigo. Medications: Celexa Dexmethylphenidate Divalproex sodium Lamictal Quetiapine Levonorgestrel Adderall Past Medical History: ADD Bipolar disorder Depressive disorder OCD Seasonal allergic rhinitis Intermittent explosive disorder in adult Reactive attachment disorder PMDD ADHD Past Surgical History: Elbow fracture surgery Knee surgery Physical Exam Patient Vitals for the past 24 hrs: BP Temp Temp src Pulse Resp SpO2 01/10/23 0006 125/78 98.2 ??F (36.8 ??C) Tympanic 90 16 98 % Physical Exam General: No respiratory distress. Cardiovascular: Good cap refill. Respiratory: Breathing non labored. Musculoskeletal: No tenderness. No bony deformity. Skin: No rashes or petechiae. Neurologic: non focal . Psychiatric: patient is agitated and wont answer questions about her history. Emergency Department Course Laboratory: Labs Ordered and Resulted from Time of ED Arrival to Time of ED Departure DRUG ABUSE SCREEN 1 URINE (ED) - Abnormal Result Value Amphetamines Urine Screen Negative Barbituates Urine Screen Negative Benzodiazepine Urine Screen Negative Cannabinoids Urine Screen Positive (*) Cocaine Urine Screen Negative Opiates Urine Screen Negative ALCOHOL BREATH TEST POCT - Normal Alcohol Breath Test 0 Emergency Department Course & Assessments: PSS-3 Date and Time Over the past 2 weeks have you felt down, depressed, or hopeless? Over the past 2 weeks have you had thoughts of killing yourself? Have you ever attempted to kill yourself? When did this last happen? User 01/10/236 yes yes yes within the last 24 hours (including today) EDL C-SSRS ([place]) Date and Time Q1 Wished to be (Past Month) Q2 Suicidal Thoughts (Past Month) Q3 Suicidal Thought Method Q4 Suicidal Intent without Specific Plan Q5 Suicide Intent with Specific Plan Q6 Suicide Behavior (Lifetime) Within the Past 3 Months? RETIRED: Level of Risk per Screen Screening Not Complete User 01/10/23 0247 -- -- -- -- no -- -- -- -- NG 01/10/23 0100 yes yes yes no yes yes -- -- -- EDL 01/10/23 000 yes yes yes no yes yes -- -- -- EDL Suicide assessment completed by mental health (D.E.C., SIX SIG[employer] BLACK TRAINER, etc.) Interventions: Medications - No data to display Independent Interpretation (X-rays, CTs, rhythm strip): None Assessments/Consultations/Discussion of Management or Tests: ED Course as of 01/10/23 0346 [facility] Jan 10, 2023 0012 I examined the patient and obtained history as noted above. 341 I spoke with renetta regarding the patient. Renetta talked to the patient and her family. They stated she has been under more stress lately and has been escalating. Patient normally makes comments aboutsuicide. They feel she is not a danger to herself and is going to go home with her step daughter. Social Determinants of Health affecting care: None Disposition: The patient was discharged to home. Impression & Plan Medical Decision Making: It sound like the patient is been going through a difficult time with a potential divorce and her marriage has been a great deal of stress and apparently per historians the patient has been very vocal and demonstrative in the past. She got all overwhelmed today could not calm down and made one of her usual statements but her family were concerned that she might act on it. The patient said that she was merely stressed and had nothoughts of actually harming herself. Here she was by DEC collateral information was able to be obtained the patient has a psychiatrist is contracted for safety is looking forward to an autism evaluation but agrees to go home with her stepdaughter who will monitor her and make sure she takes her meds I felt comfortable with this plan the patient does not appear to be an imminent danger and was discharged home in good condition. Diagnosis: ICD-10-CM 1. Acute reaction to situational stress F43.0 Discharge Medications: New Prescriptions No medications on file Scribe Disclosure: I, Coco Justin, am serving as a scribe at 12:31 AM on 01/10/2023 to document services personally performed by Osei Rose MD based on my observations and the provider's statements to me. 01/10/2023 Osei Rose MD Farnan, Christopher M, MD 01/10/23 0527 documented in this encounter Plan of Treatment Not on file documented as of this encounter Procedures Procedure Name Priority Date/Time Associated Diagnosis Comments ALCOHOL BREATH TEST POCT STAT 01/10/2023 3:35 AM CDT URINE DRUG SCREEN STAT 01/10/2023 2:0 9 AM CDT DRUG ABUSE SCREEN 1 URINE (ED) STAT 01/10/2023 2:09 AM CDT documented in this encounter Results * Alcohol breath test POCT (01/10/2023 3:35 AM CDT) Alcohol Breath Test 0 0.00 - 0.01 LABORATORY POC Breath Osei Rose MD LAB - ENTER/EDIT POCT [facility] LABORATORY POC [facility] Acute Care Lab [address] Lab (1st floor, no room number) [place] [address], [facility] [phone] * (ABNORMAL) Drug abuse screen 1 urine (ED) (01/10/2023 2:09 AM CDT) Amphetamines Urine Screen Negative Screen Negative 01/10/2023 2:37 AM CDT [facility] LABORATORY Comment:Cutoff for a negativ e amphetamine is less than 500 ng/mL. Barbituates Urine Screen Negative Screen Negative 01/10/2023 2:37 AM CDT [facility] LABORATORY Comment:Cutoff for a negativ e barbiturate is less than 200 ng/mL. Benzodiazepine Urine Screen Negative Screen Negative 01/10/2023 2:37 AM CDT [facility] LAB[facility] Comment:Cutoff for a negativ e benzodiazepine is less than 100 ng/mL. Cannabinoids Urine Screen Positive(A) Screen Negative 01/10/2023 2:37 AM CDT [facility] Comment: Cutoff for a positive cannabinoid is 50 ng/mL or greater. This is an unconfirmed screening result to be used for medical purposes only. Cocaine Urine Screen Negative Screen Negative 01/10/2023 2:37 AM CDT [facility] LABOR[facility] Comment:Cutoff for a negativ e cocaine is less than 300 ng/mL. Opiates Urine Screen Negative Screen Negative 01/10/2023 2:37 AM CDT [facility] LABOR[facility] Comment:Cutoff for a negativ e opiate is less than 300 ng/mL. Urine MID-STREAM URINE SPECIMEN / Unknown Non-blood Collection / Unknown 01/10/2023 2:09 AM CDT 01/10/2023 2:15 AM CDT Osei Rose MD LAB - URINE SAKSHI SALAS [facility] Acute Care Lab [address] [facility] Lab (1st floor, no room number) [place] [address], [facility] [phone] documented in this encounter Visit Diagnoses Diagnosis Acute reaction to situational stress documented in this encounter Care Teams Board Mill Supervisor Relationship Specialty Start Date End Date No Ref-Primary, Physician PCP - General 11/08/20 documented as of this encounter
--- OUTSIDE RECORDS SUMMARY | 2023-06-27 15:39 | XMS_ITS | Clinical Summary ---
Author Name Unknown Organization [facility] Address [place], [place] [address] Care Team Providers Care Bias Binding Cutter Name Role Phone Clinic, No Pcp Or Primary Care Provider Unavaila ble Allergies Active Allergy Reactions Criticality Noted Date Comments Diphenhydramine Hcl *Unknown 11/17/2018 Flavoring Agent Anaphylaxis High 12/15/2020 Inside of mouth swells Cat's Claw (Uncaria Tomentosa) Hives High 03/26/2007 Cats (Fur, Dander, Saliva) *Unknown 03/26/2007 Diphenhydramine Anaphylaxis,Hives High 02/28/2019 Epinephrine Anaphylaxis High 05/16/2009 Pt states throat closing up [place] Mushroom Other - Describe In Comment Field 02/28/2019 Tongue swelling and facial numbness Mushroom Hives High 12/15/2020 Unlisted Allergen (Include Detail In Comments) *Unknown 11/17/2018 Pt states she cannot have the epi-pen [place] Hives High 11/08/2020 Gets hives and face swells. [place] Flavor Hives High 02/28/2019 Venom-Honey Bee Anaphylaxis High 03/26/2007 Medications Medication Sig Dispensed Refills Start Date End Date Status citalopram hydrobromide (CITALOPRAM ORAL) Take by mouth. 0 Act praneeth LAMOTRIGINE ORAL Take by mouth. 0 Acti ve citalopram (CELEXA) 40 mg tablet Take 40 mg by mouth once daily. 0 05/17/2022 Active lamoTRIgine (LAMICTAL) 100 mg tablet Take 100 mg by mouth once daily. 0 05/29/2022 Active lamoTRIgine (LAMICTAL) 200 mg tablet Take 200 mg by mouth every morning. 0 05/17/2022 Active QUEtiapine (SEROQUEL) 50 mg tablet TAKE 3 TABLETS BY MOUTH AT BEDTIME NEEDED 0 05/18/2022 Active dexmethylphenidate xR (FOCALIN XR) 15 mg capsule Take 15 mg by mouth once daily. 0 05/22/2022 Active divalproex (DEPAKOTE ER) 500 mg Extended-Release tablet Take 500 mg by mouth at bedtime. 0 05/29/2022 Active Social History Tobacco Use Types Packs/Day Years Used Date Smoking Tobacco: Never Smokeless Tobacco: Never Alcohol Use Standard Drinks/Week Comments Not Currently 0 (1 standard drink = 0.6 oz pur e alcohol) Sex and Gender Information Value Date Recorded Sex Assigned at Not on file Gender Identity Not on file Sexual Orientation Not on file Obstetrics History Last Filed Vital Signs Vital Sign Reading Time Taken Comments Blood Pressure 121/56 06/11/2022 6:42 PM GEOLOGICAL E LOGGER Pulse 90 06/11/2022 6:42 PM GEOLOGICAL E LOGGER Temperature 36.9 ??C (98.5 ??F) 06/11/2022 6:42 PM CS T Respiratory Rate 16 06/11/2022 6:42 PM GEOLOGICAL E LOGGER Oxygen Saturation 95% 06/11/2022 6:42 PM GEOLOGICAL E LOGGER Inhaled Oxygen Concentration - - Weight 72.6 kg (160 lb) 10/19/2020 7:44 PM CDT Height 152.4 cm (5') 10/19/2020 7:44 PM CDT Body Mass Index 31.25 10/19/2020 7:44 PM CDT Plan of Treatment Health Maintenance Due Date Last Done Comments Tdap 2001 Depression screening for age 12+ 2002 HIV for age 15-65 2005 BMI (ht and wt on same day) for age 18+ 2008 Hepatitis C screening for ag e 18-79 2008 Tetanus booster 2010 Pap test for age 21-65 2011 COVID-19 vaccine series ( season) 2023 08/17/2021, 10/19/2020, 09/28/2020 Influenza for age 9-49 02/08/2023 Pneumococcal series for age 6-64 Aged Out No longer eligible b ased on patient's age to complete this topic Care Teams Bias Binding Cutter Relationship Specialty Start Date End Date Clinic, No Pcp Or . PCP - General 11/17/18
--- OUTSIDE RECORDS SUMMARY | 2023-06-27 15:39 | XMS_ITS | Referral Summary ---
Author Name Unknown Organization [facility] Address [address] [place] [id number] Care Team Providers Care Mesh Man Name Role Phone No Ref-Primary, Physician Primary Care Provider Allergies Active Allergy Reactions Criticality Noted Date Comments Diphenhydramine 11/08/2020 [place] Extract 11/08/2020 Medications Medication Sig Dispensed Refills [...] lb 5.3 oz) 06/11/2022 8:17 P M VISION REHABILITATION THERAPIST Height 152.4 cm (5') 06/11/2022 8:17 PM VISION REHABILITATION THERAPIST Body Mass Index 32.68 06/11/2022 8:17 PM VISION REHABILITATION THERAPIST Plan of Treatment Not on file Care Teams Mesh Man Relationship Specialty Start Date End Date No Ref-Primary, Physician PCP - General 11/08/20
== END 2023-06-27 15:32 | disposition home or self-care (01) ==
PROVIDERS: PCP Emergency Medicine; Visit Provider Emergency Medicine
DX: Z00.00 Encounter for general adult medical examination without abnormal findings (principal); E83.52 Hypercalcemia; Z13.6 Encounter for screening for cardiovascular disorders
CPT/HCPCS: 80048; 80061; 84443

== ENCOUNTER 2024-08-18 08:14 | Outpatient (CLI) | payer BC, SELFPAY ==
[2024-08-18 13:27] LABS: Basophils Percent Auto 0.5 % (0.0-3.0); Hematocrit 40.8 % (33.0-51.0); Hemoglobin* 13.4 gm/dL (12.0-16.0); Immature Granulocytes Pct Auto 0.2 %; Lymphocytes Percent Auto 29.8 % (20-44); Mean Corpuscular HGB Conc 33 gm/dL (32-36); Mean Corpuscular Hemoglobin 30 pg (26-34); Mean Corpuscular Volume 91 fL (80-100); Monocytes Percent Auto 6.4 % (0.0-11.0); Neutrophils Percent Auto 63.1 % (42.0-72.0); Platelet Count* 340 K/uL (140-440); RDW Coefficient of Variation % 11.9 % (11.5-15.5); Red Blood Count 4.47 m/uL (4.00-5.20); White Blood Count* 4.06 K/uL (4.50-11.00)
[2024-08-18 13:31] LABS: Albumin* 4.9 g/dL (3.3-5.0); Chloride* 102 mmol/L (96-114); Potassium* 4.4 mmol/L (3.6-5.1); Sodium* 140 mmol/L (135-149)
[2024-08-18 13:33] LABS: Anion Gap 8 mEq/L (7-15); Bilirubin Total* 0.4 mg/dL (0.1-1.5); Blood Urea Nitrogen* 9 mg/dL (5-24); Carbon Dioxide* 30 mmol/L (20-32); Cholesterol* 182 mg/dL (90-199); Creatinine* 0.9 mg/dL (0.5-1.5); Estimated Glomerular Filt Rate 86 ml/min
[2024-08-18 13:34] LABS: Alanine Aminotransferase* 22 U/L (4-35); Alkaline Phosphatase* 99 U/L (40-150); Aspartate Amino Transferase* 27 U/L (12-35); Calcium* 9.1 mg/dL (8.4-10.6); Glucose* 95 mg/dL (60-115); HDL Cholesterol* 82 mg/dL (>=50); LDL Cholesterol Calculated 88 mg/dL (<100); Total Protein* 7.9 g/dL (6.0-8.3); Triglycerides* 59 mg/dL (40-149)
[2024-08-18 13:45] LABS: Slide Review Reflex No
[2024-08-18 14:05] LABS: Hemoglobin A1C* 4.6 % (0-5.6)
[2024-08-18 14:17] LABS: Free T4 Free Thyroxine* 0.88 ng/dL (0.70-1.85)
== END 2024-08-18 08:15 | disposition home or self-care (01) ==
LOC: NPINS 08:15
PROVIDERS: PCP Emergency Medicine; Visit Provider Nurse Practitioner
DX: E83.52 Hypercalcemia (principal); F42.9 Obsessive-compulsive disorder, unspecified; D58.2 Other hemoglobinopathies; F64.9 Gender identity disorder, unspecified; Z13.6 Encounter for screening for cardiovascular disorders
CPT/HCPCS: 80053; 80061; 82607; 83036; 84439; 84443; 85025

== ENCOUNTER 2024-08-18 08:29 | Outpatient (CLI) | payer BC, SELFPAY | END 2024-08-18 08:30 | disposition home or self-care (01) | LOC: NFLDREF 08-20 07:23 | PROVIDERS: PCP Emergency Medicine; Referring Provider Emergency Medicine; Visit Provider Emergency Medicine | DX: F42.9 Obsessive-compulsive disorder, unspecified (principal) | CPT/HCPCS: 82607 ==